=== PATIENT | female | born 1990 | race Caucasian/White ===

== ENCOUNTER 2017-07-21 00:32 | Emergency (ER) | payer OTHER ==
[~2017-07-21] VITALS: Ht 152.4 cm; Wt 36.3 kg
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
[~2017-07-21 00:32] MED LIST: AMOXICILLIN500 M1 PO; BACTRIM DS TABL1 TA1 PO; BENTYL20 MG PO; BIRTH CONTROL PILL PO; CORTISPORIN-TC10 ML OT; FLEXERIL PO; IBUPROFEN600 MG PO; KEFLEX PO; MOTRIN600 MG PO; NAPROXEN PO; NO MEDICATIONS; PHENERGAN PO; PRENATAL MULITV1 TAB PO; ULTRAM PO; VICODIN 5/1 TAB 5/50 PO
== END 2017-07-21 02:20 | disposition home or self-care (01) ==
LOC: SED 00:32
DX: S16.1XXA Strain of muscle, fascia and tendon at neck level, initial encounter (principal); S30.0XXA Contusion of lower back and pelvis, initial encounter; F17.200 Nicotine dependence, unspecified, uncomplicated; Z88.2 Allergy status to sulfonamides; V49.50XA Passenger injured in collision with unspecified motor vehicles in traffic accident, initial encounter
CPT/HCPCS: 72040; 72100; 99284